=== PATIENT | male | born 1985 | race Caucasian/White ===

== ENCOUNTER → 2018-12-19 10:37 | Outpatient (CLI) | payer BC, SELFPAY ==
--- NOTE | 2018-12-19 10:44 | XR_ITS ---
XR shoulder LT min 2V HISTORY: Follow-up acromioclavicular joint separation ITS.REASON: regular shoulder views out of arm sling ORDERING PHYSICIAN: German Vang MD COMPARISON: 10/30/2018 FINDINGS: There remains widening of the acromioclavicular joint space overall not significant changed. The coracoclavicular joint space also remains widened. No fracture apparent. IMPRESSION: Overall no change grade 3 AC joint separation
== END ==
PROVIDERS: PCP Emergency Medicine; Visit Provider Orthopaedic Surgery
DX: S43.102A Unspecified dislocation of left acromioclavicular joint, initial encounter (principal)
CPT/HCPCS: 73030

== ENCOUNTER → 2019-01-27 13:21 | Outpatient (CLI) | payer BC, SELFPAY ==
--- NOTE | 2019-01-27 13:25 | XR_ITS ---
XR shoulder LT min 2V HISTORY: ITS.REASON: AC Joint seperation ORDERING PHYSICIAN: German Vang MD PATIENT AGE: 33 years Comparison: 12/19/2018 FINDINGS: Grade 3 left before meals separation once again noted. There is some mild soft tissue calcification inferior to the distal aspect of the clavicle. Separation appears slightly worse when compared to the previous exam. IMPRESSION: Grade 3 left acromioclavicular separation which appear slightly worse
== END ==
PROVIDERS: PCP Emergency Medicine; Visit Provider Orthopaedic Surgery
DX: S43.102A Unspecified dislocation of left acromioclavicular joint, initial encounter (principal)
CPT/HCPCS: 73030

== ENCOUNTER 2019-02-19 08:00 | Outpatient (RCR) | payer BC, SELFPAY ==
--- NOTE | 2019-01-15 10:07 | HMH.PTOPEV ---
PT Outpatient Evaluation Rehab PT Outpatient Evaluation Start: 01/15/19 08:58 Freq: Status: Active Protocol: Document 01/15/19 10:00 KEMAR (Rec: 01/15/19 10:07 PHORBISMARK [id number]) Electronically Signed By Quentin Cabrera, PT 01/15/19 10:00 Outpatient Therapy Subjective History Subjective History Pt is 33 yowm who presents ~ 2 mos S/P [facility] accident where he suffered a left shld AC jt separation. He has been following conservative management with good results. He presents today with mild aching pain with certain activities (worst with left UE horizontal adduction) and stiffnes. He reports no pain at rest and no c/o numbness ot tingling in the left UE. PMH: none significant. Chief Complaint Pain,Stiff Symptom Type Ache Symptoms Relieved By Rest/Positioning Symptoms Aggravated By Physical Activity Prior Functional Limitations None Current Functional Limitations Reaching Symptom Description Activity Dependent Level of pain today (0-10) 0 Pain scale - at its worst (0-10) 2 Shoulder/Elbow Eval Shoulder Objective Measurements Palpation Tenderness Shoulder Palpation Findings Tenderness Shoulder Palpation Overall Comment Left AC jt Shoulder ROM Left Shoulder Abduction Active Range of 0-169 Motion (degrees) Shoulder Flexion Active Range of Motion 0-165 (degrees) Query Text: Shoulder External Rotation Active Range 0-70 of Motion (degrees) Shoulder Internal Rotation Active Range 0-90 of Motion (degrees) Shoulder MMT Shoulder Abduction Strength Grade 4 Good Shoulder Flexion Strength Grade 4 Good Shoulder External Rotation Strength 4 Good Grade Shoulder Internal Rotation Strength 5 Normal Grade Shoulder Special Tests Shoulder Cross-Over Impingement Test Negative Left,Negative Right Acromioclavicular Joint Compression Test Negative Right,Positive Left Shoulder Anterior Drawer Test Negative Left,Negative Right Shoulder Empty Can (Supraspinatus) Test Negative Left,Negative Right Shoulder Evans-Errol Impingement Negative Left,Negative Right Test Shoulder Anterior Load and Shift Test Negative Left,Negative Right Shoulder Posterior Load and Shift Test Negative Left,Negative Right Shoulder Dukes Test Negative Left,Negative Right Elbow Objective Measurements Outpatient Therapy Assessment Impairments Problems/Impairmmen
== END 2019-02-19 08:05 | disposition home or self-care (01) ==
LOC: PT 08:00
PROVIDERS: Visit Provider Orthopaedic Surgery
DX: S43.102D Unspecified dislocation of left acromioclavicular joint, subsequent encounter (principal)
CPT/HCPCS: 97010; 97014; 97033; 97035; 97110; 97163; G0283

== ENCOUNTER 2021-08-18 16:59 | Emergency (ER) | payer BC, SELFPAY ==
[2021-08-18 17:19] VITALS: BP 128/82; PULSE 84; RESP 18; TEMP 37.2; O2SAT 97; BMI 38.0
--- NOTE | 2021-08-18 18:07 | HMH.EDUTC ---
[facility] [place] Disposition Clinical Impression: Otitis media Qualifiers: Otitis media type: suppurative Chronicity: acute Laterality: bilateral Recurrence: non-recurrent Spontaneous tympanic membrane rupture: without spontaneous rupture Qualified Code(s): H66.003 - Acute suppurative otitis media without spontaneous rupture of ear drum, bilateral Sinusitis Qualifiers: Sinusitis location: unspecified location Chronicity: acute Recurrence: non-recurrent Qualified Code(s): J01.90 - Acute sinusitis, unspecified Disposition: Home, Self-Care Condition on Discharge: Good Instructions: Sinusitis, Middle Ear Infection, DI for Sinusitis, DI for COVID-19 (Suspected or Confirmed ), Preventing the Spread of Coronavirus Discharge Instructions Additional Instructions: Drink plenty of fluids. Take tylenol or ibuprofen for pain or fever. Take the medications as directed. Follow up with your regular doctor. GO TO THE ER FOR ANY WORSENING SYMPTOMS Quarantine until you know the results of your covid-19 test. Notify your school or workplace of your results and follow their instructions regarding return to work/school. Don't start the oral steroids until tomorrow, since you had the shot here today. Prescriptions: Brompheniramine/Pseudoephed/Dm [Bromfed Dm Cough Syrup] 5 ml PO Q6HP PRN #240 ml PRN Reason: Cough Transmission Status: Received by [id number] methylPREDNISolone [Medrol] 4 mg PO DIRECTED 6 Days #21 packet Transmission Status: Received by [id number] Cefdinir [Omnicef 300mg Capsule] 300 mg PO BID #20 cap Transmission Status: Received by [id number] Referrals: Tye Titus MD [Primary Care Provider] - Medical Decision Making - Medical Records Medical records reviewed: No: I reviewed the patient's medical records. - Rex Inquiry Pt receiving controlled substance: No Vital Signs: 08/18/21 17:19 08/18/21 18:46 Temperature 99 F 99 F Temperature Source Oral Pulse Rate 84 Pulse Rate [Left] 84 Respiratory Rate 18 18 Blood Pressure 128/82 Blood Pressure [Right Arm] 128/82 Blood Pressure Mean [Right Arm] 97 02 Sat by Pulse Oximetry 97 - Lab Data Lab results reviewed: Yes: I reviewed the patient's lab results. Orders (Tests/Meds): ED MEDICATIONS Discontinued Medications Generic Name Dose Route Start Last Admin Trade Name Ra PRN Reason Stop Dose Admin Ceftriaxone Sodium 1 gm 08/18/21 18:09 08/18/21 18:23 Ceftriaxone 1gm Vial IM 08/18/21 18:10 1 gm ONCE ONE Administration Lidocaine HCl 0 ml 08/18/21 18:09 08/18/21 18:23 Lidocaine 1% 5ml Pf Vial IM 08/18/21 18:10 2 ml ONCE ONE Administration Methylprednisolone Sodium Succinate 125 mg 08/18/21 18:09 08/18/21 18:23 Methylprednisolone Sod Succ 125mg Vial IM 08/18/21 18:10 125 mg ONCE ONE Administration [facility] [place] HPI - General Stated complaint: r ear pain Time Seen by Provider: 08/18/21 17:25 Mode of Arrival: Ambulatory Source of Information: Patient Limitations: No Limitations Description of Symptoms (Recalled from Triage Doc. by RN): pt c/o a R ear ache x4 days. HEENT Symptoms (Recalled from RN notes): Yes (R earache) Resp Symptoms (Recalled from RN notes): No Skin Symptoms (Recalled from RN notes): No MS Symptoms (Recalled from RN notes): No Functional Status (Recalled from RN notes): wnl - History of Present Illness Provider Complaint: He c/o having a right ear ache for the past 4 days. - Related Data Previous Rx's Medication Instructions Recorded Brompheniramine/Pseudoephed/Dm 5 ml PO Q6HP PRN #240 ml 08/18/21 [Bromfed Dm Cough Syrup] Cefdinir [Omnicef 300mg Capsule] 300 mg PO BID #20 cap 08/18/21 methylPREDNISolone [Medrol] 4 mg PO DIRECTED 6 Days #21 08/18/21 packet Allergies Allergy/AdvReac Type Severity Reaction Status Date / Time No Known Allergies Allergy Verified 01/27/19 13:40 - Worker's Comp Is this a Worker's Comp
[2021-08-18 18:46] VITALS: BP 128/82; PULSE 84; RESP 18; TEMP 37.2
== END 2021-08-18 18:48 | disposition home or self-care (01) ==
PROVIDERS: Emergency Provider Nurse Practitioner Family; PCP Emergency Medicine
DX: H66.003 Acute suppurative otitis media without spontaneous rupture of ear drum, bilateral (principal); U07.1 COVID-19; J01.90 Acute sinusitis, unspecified
CPT/HCPCS: 96372; 99203; C9803; G0463; J0696; U0003; U0005

== ENCOUNTER 2024-09-01 14:46 | Emergency (ER) | payer BC, SELFPAY ==
[2024-09-01 14:47] VITALS: BP 175/95; PULSE 88; RESP 18; TEMP 37.4; O2SAT 98; BMI 40.1
--- NOTE | 2024-09-01 15:01 | ED_ITS ---
Discharge Plan Disposition Patient Disposition: Home, Self-Care Condition: Good Prescriptions Prescriptions: No Action No Known Home Medications Activity Restrictions/Add. Instructions Additional Instructions/Restrictions: Continue taking 1000 mg of Tylenol every 8 hours alternating with up to 800 mg every 8 hours of ibuprofen for your constitutional symptoms. If you have any new continuing or worsening signs or symptoms follow-up with your PCP or return to the ER as needed. Clinical Impressions Clinical Impression: Influenza A Stand Alone Forms Stand Alone Forms: Work/School Release Print Language Print Language: Arabic Discharge ED Provider: Alfredo Giordano General Adult HPI <LORIE Piedra - Last Filed: 09/01/24 17:54> General Chief complaint: Upper Respiratory Infection Stated complaint: COLLINS,Hot & cold Time Seen by Provider: 09/01/24 15:01 Mode of Arrival: Ambulatory Source of Information: Patient Limitations: No Limitations Description of Symptoms (Recalled from ER Triage Doc. by RN): pt presents to ED with c/o flu like symptoms. fatigue, headache, no fever, but feels hot and cold. pt was seen by his nurse at . pt was given dayquil around 10 am. History of Present Illness HPI narrative: Patient presents for evaluation of fever and fatigue and myalgias. Patient states he began feeling poorly yesterday with bodyaches headache and fatigue. Patient states he feels very sleepy. He however went to work today and has felt worse as the day has gone along. He reports a mild nonproductive cough no focal neurologic symptoms and his headache is worse with coughing. Denies any chest pain shortness of breath hemoptysis hematochezia melena nausea vomit diarrhea. Related Data Home Medications ?Medication ?Instructions ?Recorded ?Confirmed No Known Home Medications 09/01/24 09/01/24 Allergies Allergy/AdvReac Type Severity Reaction Status Date / Time No Known Allergies Allergy Verified 09/01/24 15:03 PFS <LORIE Piedra - Last Filed: 09/01/24 17:54> [facility] Disclaimer: The information contained in this section may have been updated after the patient was seen, as this information can be updated by other users. Social History Smoking Status: Never smoker alcohol intake: never current occupational status: employed Travel in the last 8 weeks: Inside the [place] housing: house Have you lived/traveled outside [place] in past 30 days?: No Contact w/someone who lives/traveled outside [place] past 30 days?: No Exposure to someone with infectious disease in past 14 days?: No Do you have a fever (greater than 100.4 F or 38 C)?: No Have you tested positive for COVID-19: No Exposed to someone with COVID-19 in past 14 days?: No Do you have a sore throat?: No Do you have a cough?: No Do you have any weakness?: No Do you have any diarrhea?: No Are you experiencing any unusual bleeding?: No Do you have any muscle aches/pain?: No Do you have any abdominal pain?: No Are you experiencing loss of taste or smell?: No Other Medical History Have you received the Pneumonia Vaccine: No <LORIE Piedra - Last Filed: 09/01/24 17:54> ROS Obtained: Yes Systems reviewed as appropriate & no additional complaints except as documented Physical Exam <LORIE Piedra - Last Filed: 09/01/24 17:54> General General appearance: alert and in no apparent distress Respiratory Respiratory exam: Present normal lung sounds bilaterally Cardiovascular Cardiovascular exam: Present regular rate Neurological Exam Neurological exam: Present alert and oriented X3 Medical Decision Making <LORIE Piedra - Last Filed: 09/01/24 17:54> Medical Records Screening: Per USPSTF and CDC recommendations, given the prevalence of disease in our region, it is our hospital?s policy to screen for HIV and viral Hepatitis for all patients aged 18 and over and those with ongoing risk factors. Rex Inquiry Pt receiving controlled substance: No Vital Signs: 09/01/24 14:47 09/01/24 15:43 Temperature 99.4 F 98.9 F Temperature Source Oral Pulse Rate 81 Pulse Rate [Left Radial] 88 Respiratory Rate 18 20 Blood Pressure 155/85 H Blood Pressure [Right Arm] 175/95 H Blood Pressure Mean [Right Arm] 121 02 Sat by Pulse Oximetry 98 Oxygen Delivery Method Room Air Lab Data Lab results reviewed: Yes I reviewed the patient's lab results. Lab Results 09/01/24 : SARS-CoV-2 (PCR) Not detected, Influenza A Untype (PCR) Detected A, Influenza Type B (PCR) Not detected Orders (Tests/Meds): ED MEDICATIONS Discontinued Medications Generic Name Dose Route Start Last Admin Trade Name Ra PRN Reason Stop Dose Admin Acetaminophen 1,000 mg 09/01/24 15:23 09/01/24 15:25 Acetaminophen 500mg Tab PO 09/01/24 15:24 1,000 mg ONCE ONE Administration Ibuprofen 800 mg 09/01/24 15:23 09/01/24 15:25 Ibuprofen 400 Mg Tablet PO 09/01/24 15:24 800 mg ONCE ONE Administration ORDERS Category Date Time Status HIV Combo Stat Lab 09/01/24 14:59 Ordered Hepatitis C Ab Qual. W/ RFX Stat Lab 09/01/24 14:59 Ordered Rapid PCR Covid and Flu A/B Stat Lab 09/01/24 Completed Medical Decision Narrative: In summary patient is a 39-year-old male who presents to the emergency department for evaluation of flulike symptoms. Patient is initially hypertensive at 175/95 but a heart rate of 88 normal sinus rhythm on the bedside monitor breathing 18 times a minute satting at 98% on room air upon arrival, with a low-grade temperature of 99.4. Physical exam is remarkable for clear breath sounds with no adventitious sounds or increased work of breathing, normal heart sounds. Posterior pharynx is clear without exudate. There is no cervical lymphadenopathy.. Differential diagnosis includes influenza versus other viral respiratory tract infection. Initial workup will be conducted with COVID and flu swabs and I considered a chest x-ray and lab work however patient via shared decision making and patient directed decision making feels he is not needed that as he is only here to confirm whether or not he has the flu due to his close work environment and infecting other coworkers thus other workup is deferred to patient's request. Initial interventions include Tylenol and ibuprofen. Initial workup reviewed by me indeed shows. Upon repeat evaluation patient actually had decrease in his heart rate decreasing his temperature and feels subjectively better than on arrival. Given this patient is appropriate for discharge with recommendations to continue taking Tylenol Motrin for the next 24 hours on a scheduled basis and close follow-up with his PCP for continuing new or worsening signs or symptoms or he may return to the ER as needed <Alfredo Giordano MD - Last Filed: 09/01/24 19:01> Vital Signs: 09/01/24 14:47 09/01/24 15:43 Temperature 99.4 F 98.9 F Temperature Source Oral Pulse Rate 81 Pulse Rate [Left Radial] 88 Respiratory Rate 18 20 Blood Pressure 155/85 H Blood Pressure [Right Arm] 175/95 H Blood Pressure Mean [Right Arm] 121 02 Sat by Pulse Oximetry 98 Oxygen Delivery Method Room Air Lab Data Lab Results 09/01/24 : SARS-CoV-2 (PCR) Not detected, Influenza A Untype (PCR) Detected A, Influenza Type B (PCR) Not detected Orders (Tests/Meds): ED MEDICATIONS Discontinued Medications Generic Name Dose Route Start Last Admin Trade Name Ra PRN Reason Stop Dose Admin Acetaminophen 1,000 mg 09/01/24 15:23 09/01/24 15:25 Acetaminophen 500mg Tab PO 09/01/24 15:24 1,000 mg ONCE ONE Administration Ibuprofen 800 mg 09/01/24 15:23 09/01/24 15:25 Ibuprofen 400 Mg Tablet PO 09/01/24 15:24 800 mg ONCE ONE Administration ORDERS Category Date Time Status HIV Combo Stat Lab 09/01/24 14:59 Ordered Hepatitis C Ab Qual. W/ RFX Stat Lab 09/01/24 14:59 Ordered Rapid PCR Covid and Flu A/B Stat Lab 09/01/24 Completed Medical Decision Narrative: In summary patient is a 39-year-old male who presents to the emergency department for evaluation of flulike symptoms. Patient is initially hypertensive at 175/95 but a heart rate of 88 normal sinus rhythm on the bedside monitor breathing 18 times a minute satting at 98% on room air upon arrival, with a low-grade temperature of 99.4. Physical exam is remarkable for clear breath sounds with no adventitious sounds or increased work of breathing, normal heart sounds. Posterior pharynx is clear without exudate. There is no cervical lymphadenopathy.. Differential diagnosis includes influenza versus other viral respiratory tract infection. Initial workup will be conducted with COVID and flu swabs and I considered a chest x-ray and lab work however patient via shared decision making and patient directed decision making feels he is not needed that as he is only here to confirm whether or not he has the flu due to his close work environment and infecting other coworkers thus other workup is deferred to patient's request. Initial interventions include Tylenol and ibuprofen. Initial workup reviewed by me indeed shows. Upon repeat evaluation patient actually had decrease in his heart rate decreasing his temperature and feels subjectively better than on arrival. Given this patient is appropriate for discharge with recommendations to continue taking Tylenol Motrin for the next 24 hours on a scheduled basis and close follow-up with his PCP for continuing new or worsening signs or symptoms or he may return to the ER as needed I was consulted by the LYNNETTE, and we discussed the complexity of the problems being addressed. I approved the treatment and management plan for this patient's care in the Emergency Department, thus performing a substantive portion of the m edical decision making. Influenza positive. Close return precautions discussed. Alfredo Giordano MD Critical Care <LORIE Piedra - Last Filed: 09/01/24 17:54> Critical Care Time Critical Care Time: No
--- NOTE | 2024-09-01 15:02 | PC.NURSE ---
nasal swab sent to lab
[2024-09-01 15:04] LABS: Coronavirus 19, PCR Not Detected (NotDetected); Influenza B, PCR Not Detected (NotDetected)
[2024-09-01] MEDS: IBUPROFEN 400 MG TABLET 800 MG PO (15:25)
[2024-09-01] MEDS: ACETAMINOPHEN 500MG TAB 1000 MG PO (15:25)
[2024-09-01 15:32] LABS: Influenza A, PCR Detected (NotDetected)
[2024-09-01 15:43] VITALS: BP 155/85; PULSE 81; RESP 20; TEMP 37.2; O2SAT 99
== END 2024-09-01 15:44 | disposition home or self-care (01) ==
PROVIDERS: Emergency Medicine; Emergency Provider Emergency Medicine
DX: J10.1 Influenza due to other identified influenza virus with other respiratory manifestations (principal); R53.83 Other fatigue; R51.9 Headache, unspecified; R50.9 Fever, unspecified; M79.10 Myalgia, unspecified site; R05.9 Cough, unspecified
CPT/HCPCS: 87636; 99283

== ENCOUNTER 2024-10-05 14:19 | Outpatient (CLI) | payer BC, SELFPAY ==
[2024-10-05 14:26] LABS: Microscopic, Urine URINE MICROSCOPIC (MICROSCOPIC)
[2024-10-05 14:50] LABS: Basophils % 0.4 % (0.1-2.0); Eosinophils # 0.2 K/mm3 (0.0-0.4); Eosinophils % 1.9 % (0.1-12.0); Hematocrit 46.6 % (42.0-52.0); Hemoglobin 16.1 g/dL (14.1-18.0); Lymphocytes # 2.6 K/mm3 (0.7-4.5); Lymphocytes % 25.7 % (10-50); Mean Corpuscular HGB Conc 34.5 g/dL (31.8-35.4); Mean Corpuscular Hemoglobin 29.1 pg (27.0-31.2); Mean Corpuscular Volume 84.3 fl (80-94); Mean Platelet Volume 10.3 fl (7.4-10.4); Monocytes # 0.6 K/mm3 (0.1-1.0); Monocytes % 6.3 % (1.7-9.3); Neutrophils # 6.7 K/mm3 (1.8-7.8); Neutrophils % 65.3 % (37.0-80.0); Platelet Count 273 K/mm3 (142-424); Red Blood Count 5.53 M/mm3 (4.60-6.20); White Blood Count 10.2 K/mm3 (4.8-10.8)
[2024-10-05 15:21] LABS: Total Protein,Urine Random < 5.0 mg/dL (0.0-12.0)
[2024-10-05 15:26] LABS: Appearance,Urine Clear (Clear); Bilirubin,Urine Negative (Negative); Blood, Urine 2+ (Negative); Color,Urine Yellow (Yellow); Glucose,Urine (UA) Negative (Negative); Ketones,Urine Negative (Negative); Nitrate,Urine Negative (Negative); PH,Urine 5.5 (5.0-8.5); Protein,Urine Negative (Negative); Specific Gravity, Urine 1.025 (1.005-1.030)
[2024-10-05 15:27] LABS: Bacteria,Urine Trace /lpf; Leukocyte Esterase,Urine Negative (Negative); Urobilinogen,Urine 0.2 EU/dl (0.2); WBC,Urine Occasional #/hpf (0-3)
[2024-10-05 15:41] LABS: Albumin Level 4.6 g/dl (3.5-5.0)
[2024-10-05 15:42] LABS: Chloride 104 mmol/L (98-107); Sodium 137 mmol/L (136-145)
[2024-10-05 15:44] LABS: Alanine Aminotransferase 31 U/L (12-78); Alkaline Phosphatase 65 U/L (38-126); Aspartate Amino Transferase 32 U/L (17-59); Bilirubin,Total 0.4 mg/dl (0.2-1.3); Blood Urea Nitrogen 12 mg/dl (9-20); Carbon Dioxide 25 mmol/L (22.0-30.0); Estimated Glomerular Filt Rate 95 ml/min (>60); GFR (African American) 115 ML/MIN (>60)
[2024-10-05 15:45] LABS: Albumin/Globulin Ratio 2.1 (1.1-1.8); Calcium 8.8 mg/dl (8.4-10.2); Chol/HDL Ratio 3.3 (1-3.5); Cholesterol 130 mg/dl (140-200); Globulin 2.2 g/dL (1.3-3.2); Glucose 84 mg/dl (74-100); HDL Cholesterol 39 mg/dl (40-60); Iron 76 ug/dL (49-181); Total Protein,Serum 6.8 g/dl (6.3-8.2); Triglycerides 153 mg/dl (30-150); VLDL Cholesterol 31 mg/dL (0-40)
[2024-10-05 15:53] LABS: Free T4 (Free Thyroxine) 1.05 ng/dl (0.78-2.19)
[2024-10-05 15:55] LABS: Total Iron Binding Capacity 395 ug/dL (261-462)
[2024-10-05 15:56] LABS: Direct LDL Cholesterol 66.92 mg/dL (100-129)
[2024-10-05 15:57] LABS: 25-OH Vitamin D, Total 34.4 ng/mL (30-100)
[2024-10-05 16:03] LABS: Hemoglobin A1C 5.5 % (4.0-6.0)
[2024-10-05 16:16] LABS: Thyroid Stimulating Hormone 5.86 uIU/mL (0.465-4.68)
[2024-10-05 16:17] LABS: HIV Combo NEGATIVE (Negative)
[2024-10-05 16:20] LABS: Ferritin 80.7 ng/ml (17.9-464)
[2024-10-05 16:24] LABS: Hepatitis C Ab Qual. W/ RFX NEGATIVE (Negative)
[2024-10-05 17:09] LABS: Vitamin B12 817 pg/mL (239-931)
== END 2024-10-05 23:59 | disposition home or self-care (01) ==
LOC: LAB 14:20
PROVIDERS: PCP Nurse Practitioner Family; Visit Provider Nurse Practitioner Family
DX: R53.83 Other fatigue (principal); E53.8 Deficiency of other specified B group vitamins; Z68.41 Body mass index [BMI] 40.0-44.9, adult; I10 Essential (primary) hypertension; Z13.1 Encounter for screening for diabetes mellitus; Z11.4 Encounter for screening for human immunodeficiency virus [HIV]; Z11.59 Encounter for screening for other viral diseases
CPT/HCPCS: 36415; 80053; 80061; 81001; 82306; 82607; 82728; 83036; 83540; 83550; 84156; 84439; 84443; 85025; 86803; 87086; 87389

== ENCOUNTER 2025-05-03 16:50 | Outpatient (CLI) | payer BC, SELFPAY ==
[2025-05-03 19:15] LABS: Free T4 (Free Thyroxine) 1.15 ng/dl (0.78-2.19)
[2025-05-03 19:32] LABS: Thyroid Stimulating Hormone 2.72 uIU/mL (0.465-4.68)
== END 2025-05-03 23:59 | disposition home or self-care (01) ==
LOC: LAB.DROPOF 05-04 16:50
PROVIDERS: PCP Nurse Practitioner Family; Visit Provider Nurse Practitioner Family
DX: E03.8 Other specified hypothyroidism (principal)
CPT/HCPCS: 84439; 84443